=== PATIENT | male | born 1945 | race Caucasian/White ===

== ENCOUNTER 2023-03-12 10:45 | Outpatient (CLI) | payer MEDICARE, BC | END 2023-03-12 10:46 | disposition home or self-care (01) | LOC: CSHMRI 10:45 | PROVIDERS: ATTEND Orthopaedic Surgery | DX: M24.812 Other specific joint derangements of left shoulder, not elsewhere classified (principal); M75.112 Incomplete rotator cuff tear or rupture of left shoulder, not specified as traumatic; M25.412 Effusion, left shoulder ==